=== PATIENT | female | born 1965 | race Caucasian/White ===

== ENCOUNTER 2017-12-08 10:48 | Emergency (ER) | payer OTHER ==
[~2017-12-08] VITALS: Ht 160 cm; Wt 90.7 kg
[~2017-12-08 10:48] MED LIST: AMIT25; Ativan0.5 MG PO; Ativan1 MG PO; CHLO25 PO; Imitrex100 MG PO; Imitrex25 MG PO; LISI20 PO; LORA1 PO; Norco 5-325 Ta1 EACH PO; PARO10 PO; SEIZURE MED; SERT25 PO; SERT50 PO; SUMA25 PO; TOPI100 PO; [UNRECOGNIZED DRUG - REMARK]
[2017-12-08 11:13] LABS: BASOPHILS ABSOLUTE AUTO 0.06 K/mm3 (0.00-0.23); BASOPHILS PERCENT AUTO 1 % (0-2); EOSINOPHILS ABSOLUTE AUTO 0.34 K/mm3 (0.00-0.68); EOSINOPHILS PERCENT AUTO 3 % (0-6); Hematocrit 41.2 % (33.0-51.0); Hemoglobin 13.4 g/dL (11.5-16.0); IMMATURE GRAN ABSOLUTE AUTO 0.05 K/mm3 (0.00-0.10); IMMATURE GRAN PERCENT AUTO 1 % (0-1); LYMPHOCYTES ABSOLUTE AUTO 4.19 K/mm3 (0.84-5.20); LYMPHOCYTES PERCENT AUTO 42 % (21-46); MONOCYTES ABSOLUTE AUTO 1.08 K/mm3 (0.16-1.47); MONOCYTES PERCENT AUTO 11 % (4-13); Mean Corpuscular HGB 27.9 pg (26.0-34.0); Mean Corpuscular HGB Conc 32.5 g/dL (31.5-36.5); Mean Corpuscular Volume 86 fL (80-100); Mean Platelet Volume 9.2 fL (9.1-12.4); NEUTROPHILS ABSOLUTE AUTO 4.16 K/mm3 (1.96-9.15); NEUTROPHILS PERCENT AUTO 42 % (41-73); Platelet Count 358 K/mm3 (150-400); RDW Coefficient Variation 13.6 % (11.7-14.2); RDW Standard Deviation 43.2 fL (35.1-46.3); Red Blood Cell Count 4.81 M/mm3 (3.80-5.20); White Blood Cell Count 9.88 K/mm3 (4.00-11.30)
[2017-12-08 11:25] LABS: Anion Gap 11 mmol/L (6-16); Blood Urea Nitrogen 13 mg/dL (8-24); Bun/Creatinine Ratio 16.8 (12.0-20.0); CO2, Blood 24 mmol/L (21-32); Calcium, Blood 8.3 mg/dL (8.5-10.1); Chloride, Blood 106 mmol/L (98-108); Creatinine, Blood 0.78 mg/dL (0.40-1.00); Glomerular Filtration Rate >60 (60-); Glucose, Blood 83 mg/dL (70-99); Potassium, Blood 3.5 mmol/L (3.5-5.5); Sodium, Blood 141 mmol/L (136-145)
[2017-12-08] MEDS ORDERED: TOPI25 PO (12:06)
[2017-12-08] MEDS ORDERED: LISI20 PO (12:06)
== END 2017-12-08 12:20 | disposition home or self-care (01) ==
LOC: ER 10:48
PROVIDERS: Emergency Medicine
DX: G40.901 Epilepsy, unspecified, not intractable, with status epilepticus (principal); S00.03XA Contusion of scalp, initial encounter; I10 Essential (primary) hypertension; F32.9 Major depressive disorder, single episode, unspecified; F41.9 Anxiety disorder, unspecified; Z79.899 Other long term (current) drug therapy; Z91.14 Patient's other noncompliance with medication regimen; X58.XXXA Exposure to other specified factors, initial encounter
CPT/HCPCS: 70450; 80048; 85025; 96374; 99284-25

== ENCOUNTER 2022-06-01 10:16 | Emergency (ER) | payer OTHER, BC ==
[~2022-06-01] VITALS: Ht 160 cm; Wt 90.7 kg
[~2022-06-01 10:16] MED LIST changes: +TOPI25 PO
[2022-06-01] MEDS ORDERED: AMIT50 PO (11:11)
[2022-06-01] MEDS ORDERED: AMLODIPINE BES2.5 MG PO (11:11)
[2022-06-01] MEDS ORDERED: PRAV20 PO (11:11)
[2022-06-01] MEDS ORDERED: DESVENLAFAXINE25 MG PO (11:11)
[2022-06-01 11:28] LABS: Prolactin 40.2 ng/mL (2.74-19.64)
[2022-06-01 11:29] LABS: Bun/Creatinine Ratio 15.2 (12.0-20.0); Calcium, Blood 8.5 mg/dL (8.5-10.1); Creatinine, Blood 0.86 mg/dL (0.40-1.00); Potassium, Blood 4.1 mmol/L (3.5-5.5)
== END 2022-06-01 13:36 | disposition home or self-care (01) ==
LOC: ER 10:16
PROVIDERS: Student in an Organized Health Care Education/Training Program
DX: G40.909 Epilepsy, unspecified, not intractable, without status epilepticus (principal); Z79.899 Other long term (current) drug therapy
CPT/HCPCS: 80048; 84146; 93005; 93010; A9270; J1953